=== PATIENT | female | born 1945 | race Native Hawaiian/Other Pacific Islander ===

== ENCOUNTER 2017-02-23 07:12 | Day surgery (SDC) | payer OTHER | END 2017-02-23 09:45 | disposition home or self-care (01) | LOC: OR 07:12 | PROC: 08RJ3JZ Replacement of Right Lens with Synthetic Substitute, Percutaneous Approach (ICD-10-PCS; principal; 2017-02-23) | DX: H25.811 Combined forms of age-related cataract, right eye (principal) | CPT/HCPCS: 66984; V2632 ==

== ENCOUNTER 2017-03-30 09:09 | Day surgery (SDC) | payer OTHER | END 2017-03-30 11:35 | disposition home or self-care (01) | LOC: OR 09:09 | PROC: 08RK3JZ Replacement of Left Lens with Synthetic Substitute, Percutaneous Approach (ICD-10-PCS; principal; 2017-03-30) | DX: H25.812 Combined forms of age-related cataract, left eye (principal) | CPT/HCPCS: 66984; V2632 ==

== ENCOUNTER 2021-10-08 10:35 | Outpatient (CLI) | payer OTHER | END 2021-10-08 19:02 | disposition home or self-care (01) | LOC: RAD 10:35 | PROVIDERS: ATTEND Nurse Practitioner Family | DX: I63.9 Cerebral infarction, unspecified (principal) ==

== ENCOUNTER 2022-01-14 12:41 | Outpatient (CLI) | payer OTHER | END 2022-01-14 19:02 | disposition home or self-care (01) | LOC: RAD 12:41 | PROVIDERS: ATTEND Nurse Practitioner Family | DX: I63.512 Cerebral infarction due to unspecified occlusion or stenosis of left middle cerebral artery (principal) ==